=== PATIENT | male | born 1965 | race Caucasian/White ===

== ENCOUNTER → 2018-08-02 | Outpatient (CLI) | payer BC, OTHER ==
[~2018-08-02] MED LIST: CATHETER FLUSH 10 ML SYR IV PRN
[2018-08-02 09:06] LABS: ALANINE AMINOTRANSFERASE 49 U/L (0-55); ALBUMIN 4.4 GM/DL (3.2-4.5); ALKALINE PHOSPHATASE 72 U/L (40-136); BILIRUBIN,TOTAL 0.6 MG/DL (0.1-1.0); BUN/CREATININE RATIO 12; CALCIUM 10.1 MG/DL (8.5-10.1); CARBON DIOXIDE 24 MMOL/L (21-32); CHLORIDE 106 MMOL/L (98-107); CHOLESTEROL 176 MG/DL (< 200); CREATININE SERUM 1.12 MG/DL (0.60-1.30); GFR ESTIMATED > 60; GLUCOSE 127 MG/DL (70-105); HDL CHOLESTEROL 26 MG/DL (40-60); POTASSIUM 4.4 MMOL/L (3.6-5.0); SODIUM 145 MMOL/L (135-145); TOTAL PROTEIN 7.1 GM/DL (6.4-8.2); TRIGLYCERIDES 160 MG/DL (<150); VLDL CHOLESTEROL 32 MG/DL (5-40)
--- NOTE | 2018-08-02 14:32 | STRESS TEST ---
DATE OF SERVICE: 08/02/2018 EXERCISE MYOVIEW STRESS TEST REPORT REFERRING PHYSICIAN: Dr. Maribell Grande. Baseline heart rate is 57. Baseline blood pressure 144/87. Baseline EKG is sinus rhythm with no ischemic changes. In summary, the patient was injected with 10.31 mCi of technetium-99 Myoview and the resting images were obtained. Then, the patient started exercising with a baseline heart rate, blood pressure and EKG as mentioned above. The patient was able to exercise for 7 minutes on standard [place] protocol. With peak exercise level, EKG was showing minimal changes. No significant ischemic changes. Blood pressure at peak was 258/103. During recovery, heart rate and blood pressure returned to baseline. EKG returned to baseline. The resting and stress images were reviewed and compared in the short axis, horizontal long axis, and vertical long axis views. Review of the images showed patchy uptake with mild decreased uptake at the anterior wall with subtle reversibility. SSS is 2, SDS 2, TID value of 0.95. On the gated images, the left ventricle appeared to be in normal size with normal contractility. Calculated ejection fraction 60%. IN CONCLUSION: 1. Fair exercise tolerance, a total of 7 minutes on standard [place] protocol, a total of 7.1 mets, achieving 81% of maximum expected heart rate. 2. Baseline hypertension with severe hypertensive response to exercise. Peak blood pressure 258/103, returned to baseline during recovery. 3. Minimal nondiagnostic EKG changes with exercise returned to baseline during recovery. 4. Diaphragmatic attenuation with mild ischemia involving the apical anteroseptum and through apex. 5. Normal left ventricular size with normal contractility. Calculated ejection fraction 60%. Job ID: [id number] DocumentID: [id number] Dictated Date: 08/02/2018 12:09:38 Banking Teacher Date: 08/02/2018 14:32:02 Dictated By: JASPAL GLOVER MD
== END ==
LOC: CARD 08:34
PROVIDERS: ATTEND Nurse Practitioner Family
DX: R07.9 Chest pain, unspecified (principal); E66.01 Morbid (severe) obesity due to excess calories
CPT/HCPCS: 36415; 78452; 80053; 80061; 83036; 93017

== ENCOUNTER 2018-10-26 10:01 | Outpatient (RCR) | payer OTHER ==
[~2018-10-26 10:01] MED LIST changes: +ATOR40TA70 PO; +BISO1TAB6 PO; -CATHETER FLUSH 10 ML SYR IV PRN; +DICL75TA2 PO; +FLUT9.9S16 NS; +FURO20TA4 PO; +METF-397 PO
== END 2019-01-24 | disposition home or self-care (01) ==
LOC: CARD 10:01
PROVIDERS: ATTEND Internal Medicine Cardiovascular Disease
DX: I10 Essential (primary) hypertension (principal); E11.9 Type 2 diabetes mellitus without complications; E78.2 Mixed hyperlipidemia; R07.89 Other chest pain
CPT/HCPCS: 93225; 93226

== ENCOUNTER → 2018-11-23 | Outpatient (CLI) | payer OTHER | LOC: WOUNDCARE 12:33 | PROVIDERS: ATTEND Surgery | DX: E11.622 Type 2 diabetes mellitus with other skin ulcer (principal); E11.52 Type 2 diabetes mellitus with diabetic peripheral angiopathy with gangrene; L97.212 Non-pressure chronic ulcer of right calf with fat layer exposed; I87.331 Chronic venous hypertension (idiopathic) with ulcer and inflammation of right lower extremity; L03.115 Cellulitis of right lower limb; I96 Gangrene, not elsewhere classified | CPT/HCPCS: 11042; 99213 ==

== ENCOUNTER → 2018-11-30 | Outpatient (CLI) | payer OTHER | LOC: WOUNDCARE 13:53 | PROVIDERS: ATTEND Surgery | DX: E11.622 Type 2 diabetes mellitus with other skin ulcer (principal); L97.212 Non-pressure chronic ulcer of right calf with fat layer exposed; L03.115 Cellulitis of right lower limb; I96 Gangrene, not elsewhere classified; I87.331 Chronic venous hypertension (idiopathic) with ulcer and inflammation of right lower extremity | CPT/HCPCS: 11042 ==

== ENCOUNTER → 2018-12-07 | Outpatient (CLI) | payer OTHER | LOC: WOUNDCARE 13:54 | PROVIDERS: ATTEND Surgery | DX: E11.622 Type 2 diabetes mellitus with other skin ulcer (principal); E11.52 Type 2 diabetes mellitus with diabetic peripheral angiopathy with gangrene; I87.331 Chronic venous hypertension (idiopathic) with ulcer and inflammation of right lower extremity; I96 Gangrene, not elsewhere classified; L97.212 Non-pressure chronic ulcer of right calf with fat layer exposed; L03.115 Cellulitis of right lower limb | CPT/HCPCS: 11042; 87070; 87077; 87205 ==

== ENCOUNTER → 2018-12-13 | Outpatient (CLI) | payer OTHER | LOC: WOUNDCARE 14:22 | PROVIDERS: ATTEND Surgery | DX: L97.212 Non-pressure chronic ulcer of right calf with fat layer exposed (principal); I87.331 Chronic venous hypertension (idiopathic) with ulcer and inflammation of right lower extremity; L03.115 Cellulitis of right lower limb; E11.622 Type 2 diabetes mellitus with other skin ulcer; E11.52 Type 2 diabetes mellitus with diabetic peripheral angiopathy with gangrene | CPT/HCPCS: 11042 ==

== ENCOUNTER → 2018-12-20 | Outpatient (CLI) | payer OTHER | LOC: WOUNDCARE 10:51 | PROVIDERS: ATTEND Surgery | DX: L97.212 Non-pressure chronic ulcer of right calf with fat layer exposed (principal); I87.331 Chronic venous hypertension (idiopathic) with ulcer and inflammation of right lower extremity; L03.115 Cellulitis of right lower limb; E11.622 Type 2 diabetes mellitus with other skin ulcer; E11.52 Type 2 diabetes mellitus with diabetic peripheral angiopathy with gangrene | CPT/HCPCS: 11042 ==

== ENCOUNTER → 2018-12-27 | Outpatient (CLI) | payer OTHER | LOC: WOUNDCARE 14:58 | PROVIDERS: ATTEND Surgery | DX: E11.622 Type 2 diabetes mellitus with other skin ulcer (principal); E11.52 Type 2 diabetes mellitus with diabetic peripheral angiopathy with gangrene; I87.331 Chronic venous hypertension (idiopathic) with ulcer and inflammation of right lower extremity; L97.212 Non-pressure chronic ulcer of right calf with fat layer exposed; I96 Gangrene, not elsewhere classified | CPT/HCPCS: 11042 ==

== ENCOUNTER → 2019-01-03 | Outpatient (CLI) | payer OTHER | LOC: WOUNDCARE 10:57 | PROVIDERS: ATTEND Surgery | DX: L97.212 Non-pressure chronic ulcer of right calf with fat layer exposed (principal); I87.331 Chronic venous hypertension (idiopathic) with ulcer and inflammation of right lower extremity; E11.622 Type 2 diabetes mellitus with other skin ulcer; E11.52 Type 2 diabetes mellitus with diabetic peripheral angiopathy with gangrene | CPT/HCPCS: 11042 ==

== ENCOUNTER → 2019-01-10 | Outpatient (CLI) | payer OTHER | LOC: WOUNDCARE 10:36 | PROVIDERS: ATTEND Surgery | DX: L97.212 Non-pressure chronic ulcer of right calf with fat layer exposed (principal); I87.331 Chronic venous hypertension (idiopathic) with ulcer and inflammation of right lower extremity; E11.622 Type 2 diabetes mellitus with other skin ulcer; E11.52 Type 2 diabetes mellitus with diabetic peripheral angiopathy with gangrene | CPT/HCPCS: 11042 ==

== ENCOUNTER → 2019-01-24 | Outpatient (CLI) | payer OTHER ==
[2019-01-24 11:29] LABS: BILIRUBIN,TOTAL 0.5 MG/DL (0.1-1.0); BUN/CREATININE RATIO 15; CALCIUM 9.6 MG/DL (8.5-10.1); CARBON DIOXIDE 28 MMOL/L (21-32); CHLORIDE 100 MMOL/L (98-107); CREATININE SERUM 1.09 MG/DL (0.60-1.30); GFR ESTIMATED > 60; GLUCOSE 103 MG/DL (70-105); POTASSIUM 4.2 MMOL/L (3.6-5.0); SODIUM 141 MMOL/L (135-145)
[2019-01-24 11:30] LABS: ALANINE AMINOTRANSFERASE 33 U/L (0-55); ALBUMIN 4.5 GM/DL (3.2-4.5); ALKALINE PHOSPHATASE 85 U/L (40-136); TOTAL PROTEIN 7.1 GM/DL (6.4-8.2)
[2019-01-24 14:58] LABS: CHOLESTEROL 143 MG/DL (< 200); HDL CHOLESTEROL 29 MG/DL (40-60); TRIGLYCERIDES 118 MG/DL (<150); VLDL CHOLESTEROL 24 MG/DL (5-40)
== END ==
LOC: LAB FS 10:42
PROVIDERS: ATTEND Internal Medicine Cardiovascular Disease
DX: I25.10 Atherosclerotic heart disease of native coronary artery without angina pectoris (principal); E11.9 Type 2 diabetes mellitus without complications; I10 Essential (primary) hypertension; E78.2 Mixed hyperlipidemia
CPT/HCPCS: 36415; 80053; 80061

== ENCOUNTER → 2019-01-26 | Outpatient (CLI) | payer OTHER | LOC: WOUNDCARE 15:00 | PROVIDERS: ATTEND Surgery | DX: L97.212 Non-pressure chronic ulcer of right calf with fat layer exposed (principal); I87.331 Chronic venous hypertension (idiopathic) with ulcer and inflammation of right lower extremity; E11.622 Type 2 diabetes mellitus with other skin ulcer | CPT/HCPCS: 99212 ==

== ENCOUNTER → 2019-04-19 | Outpatient (CLI) | payer OTHER ==
[~2019-04-19] MED LIST changes: +BISO-3 PO; -BISO1TAB6 PO
== END ==
LOC: LAB FS 08:21
PROVIDERS: ATTEND Nurse Practitioner Family
DX: E11.9 Type 2 diabetes mellitus without complications (principal)
CPT/HCPCS: 36415; 83036

== ENCOUNTER → 2019-05-09 | Outpatient (CLI) | payer OTHER | LOC: LAB FS 10:24 | PROVIDERS: ATTEND Nurse Practitioner Family | DX: R07.9 Chest pain, unspecified (principal) | CPT/HCPCS: 36415; 84484 ==

== ENCOUNTER → 2019-08-10 | Outpatient (CLI) | payer OTHER ==
[~2019-08-10] VITALS: Ht 176 cm; Wt 130.0 kg
[~2019-08-10] MED LIST changes: +CATHETER FLUSH 10 ML SYR IV PRN
--- NOTE | 2019-08-10 18:58 | STRESS TEST ---
DATE OF SERVICE: EXERCISE MYOVIEW STRESS TEST REPORT REFERRING PHYSICIAN: [facility], Maribell Grande. In summary, the patient was able to exercise for 5 minutes on Milton protocol, achieving maximum heart rate of 149, which is 90% of maximum expected heart rate. With peak exercise level, EKG was showing nondiagnostic changes. Blood pressure was 218/79. During recovery, heart rate and blood pressure returned to baseline. EKG returned to baseline. The resting and stress images were reviewed and compared in the short axis, horizontal long axis, and vertical long axis views. Review of the images showed good radiotracer uptake with no ischemia or infarction. SSS is 2, SDS 0, TID value 1.11. On the gated images, the left ventricle appeared to be normal size with normal contractility. Calculated ejection fraction 53%. CONCLUSION: 1. Fair exercise tolerance for a total of 5 minutes on standard [place] protocol, total of 7 METS achieving 90% of maximum expected heart rate. 2. Severe hypertensive response to exercise with peak blood pressure 218/79 returned to baseline during recovery. 3. Nondiagnostic EKG changes with exercise returned to baseline during recovery. 4. No significant ischemia or infarction on SPECT images. 5. Normal left ventricular size with normal contractility. Calculated ejection fraction 53%. Job ID: [id number] DocumentID: [id number] Dictated Date: 08/10/2019 15:56:04 Reinforced Concrete Inspector Date: 08/10/2019 18:56:50 Dictated By: JASPAL GLOVER MD
== END ==
LOC: CARD 10:06
PROVIDERS: ATTEND Internal Medicine Cardiovascular Disease
DX: I10 Essential (primary) hypertension (principal); E78.2 Mixed hyperlipidemia; E11.9 Type 2 diabetes mellitus without complications; I25.10 Atherosclerotic heart disease of native coronary artery without angina pectoris; R07.89 Other chest pain
CPT/HCPCS: 78452; 93017; 93306